=== PATIENT | female | born 1960 | race Two or more races ===

== ENCOUNTER 2021-12-05 12:54 | Outpatient (CLI) | payer OTHER ==
[~2021-12-05 12:54] MED LIST: ASA81 MG; DIOVAN40 MG; INDUR; NORVASC2.5 MG
== END 2021-12-05 13:05 | disposition home or self-care (01) ==
LOC: MAMO-SONO 12:54
PROVIDERS: ATTEND Obstetrics & Gynecology
DX: N60.11 Diffuse cystic mastopathy of right breast (principal)